=== PATIENT | female | born 1965 | race Caucasian/White ===

== ENCOUNTER 2021-07-28 17:33 | Emergency (ER) | payer SELFPAY ==
[2021-07-28] MEDS ORDERED: Lidocaine 1% 10 ML MDV INJECT ONE (18:03)
[2021-07-28] MEDS ORDERED: Diphtheria,Pertussis(Acell),Tetanus Vaccine 0.5 ML Syringe IM ONE (18:03)
== END 2021-07-28 18:40 | disposition home or self-care (01) ==
LOC: JD.ED 17:33
DX: S01.81XA Laceration without foreign body of other part of head, initial encounter (principal); Z88.0 Allergy status to penicillin; Z88.2 Allergy status to sulfonamides; Z23 Encounter for immunization; W20.8XXA Other cause of strike by thrown, projected or falling object, initial encounter; Y93.64 Activity, baseball
CPT/HCPCS: 12011; 90471; 90715; 99282-25

== ENCOUNTER 2023-09-25 06:51 | Inpatient (IN) | payer SELFPAY ==
[~2023-09-25 06:51] MED LIST: Sodium Chloride 0.9% 10 ML Syringe FLUSH PRN
[2023-09-25] MEDS ORDERED: ceFAZolin 2 GM Vial ONE (06:56)
[2023-09-25] MEDS ORDERED: Ondansetron 4 MG/2 ML SDV ONE (06:56)
[2023-09-25] MEDS ORDERED: Midazolam 1 MG/ML 2 ML SDV ONE (06:56)
[2023-09-25] MEDS ORDERED: Rocuronium 50 MG/5 ML Vial ONE (06:56)
[2023-09-25] MEDS ORDERED: Lidocaine 1% 4 ML ONE (06:56)
[2023-09-25] MEDS ORDERED: fentaNYL 250 MCG/5 ML SDV ONE (06:56)
[2023-09-25] MEDS ORDERED: Ketorolac 30 MG/ML SDV ONE (06:56)
[2023-09-25] MEDS ORDERED: Dexamethasone 4 MG/ML 5 ML MDV ONE (06:56)
[2023-09-25] MEDS ORDERED: Lactated Ringers 1,000 ML ONE (06:56)
[2023-09-25] MEDS ORDERED: Propofol 200 MG/20 ML SDV ONE (06:56)
[2023-09-25] MEDS ORDERED: dexmedeTOMIDine HCl 200 MCG/2 ML SDV ONE (06:56)
[2023-09-25] MEDS: Lactated Ringers 1,000 ML IV SCH (07:10)
[2023-09-25 07:29] LABS: BASOPHILS PERCENT AUTO 0.7 % (0.0-1.0); EOSINOPHILS ABSOLUTE AUTO 0.3 K/mm3 (0.0-0.4); EOSINOPHILS PERCENT AUTO 5.4 % (0.0-6.0); HEMATOCRIT 40.8 % (37.0-47.0); HEMOGLOBIN 13.8 gm/dl (12.0-16.0); IMMATURE GRAN ABSOLUTE AUTO 0.02 K/mm3 (0.00-0.05); IMMATURE GRAN PERCENT AUTO 0.3 % (0.0-0.4); LYMPHOCYTES ABSOLUTE AUTO 1.9 K/mm3 (1.0-4.8); LYMPHOCYTES PERCENT AUTO 33.2 % (24.0-44.0); MEAN CORPUSCULAR HEMOGLOBIN 30.9 pg (28.0-32.0); MEAN CORPUSCULAR HGB CONC 33.8 g/dl (32.0-36.0); MEAN CORPUSCULAR VOLUME 91.3 fl (83.0-99.0); MEAN PLATELET VOLUME 9.8 fl (9.4-12.3); MONOCYTES ABSOLUTE AUTO 0.4 K/mm3 (0.0-0.8); MONOCYTES PERCENT AUTO 7.3 % (0.0-8.0); NEUTROPHILS ABSOLUTE AUTO 3.1 K/mm3 (1.8-7.7); NEUTROPHILS PERCENT AUTO 53.1 % (41.0-71.0); PLATELET COUNT,PLT 325 K/mm3 (150-400); RED BLOOD CELL COUNT 4.47 M/mm3 (4.10-5.30); WHITE BLOOD CELL COUNT,WBC 5.75 K/mm3 (3.9-11.3)
[2023-09-25 07:48] LABS: ANION GAP 14.3 (5-15); BUN/CREATININE RATIO 7.5 (14-18); CALCIUM 8.8 mg/dL (8.5-10.1); CREATININE 0.8 mg/dL (0.55-1.02); EST CRCL DRUG DOSING (CG) 61.36 mL/min; POTASSIUM,K 3.3 mEq/L (3.5-5.1)
[2023-09-25] MEDS ORDERED: HYDROmorphone 0.5 MG/0.5 ML Syringe ONE ×2 (07:57→08:29)
[2023-09-25] MEDS ORDERED: ePHEDrine 50 MG/ML SDV ONE (08:08)
[2023-09-25] MEDS ORDERED: Ketamine 200 MG/20 ML MDV ONE (08:14)
[2023-09-25] MEDS ORDERED: HYDROmorphone 0.5 MG/0.5 ML Syringe IVPUSH PRN (08:24)
[2023-09-25] MEDS ORDERED: Ondansetron 4 MG/2 ML SDV IVPUSH PRN (08:24)
[2023-09-25] MEDS ORDERED: Tranexamic Acid 1,000 MG/10 ML Vial ONE (08:26)
[2023-09-25] MEDS ORDERED: Neostigmine Methylsulfate 10 MG/10 ML MDV ONE (08:56)
[2023-09-25] MEDS: Lidocaine 1% with EPINEPHrine 1:100,000 20 ML MDV ONE (09:00)
[2023-09-25] MEDS: Bupivacaine 0.5% 30 ML SDV ONE (09:22)
[2023-09-25] MEDS: fentaNYL 100 MCG/2 ML SDV IVPUSH PRN (10:08)
[2023-09-25] MEDS: Acetaminophen/oxyCODONE 325-5 MG Tab PO PRN (11:01)
[2023-09-25] MEDS: Sodium Chloride 0.9% 10 ML Syringe FLUSH SCH (11:09)
[2023-09-25] MEDS ORDERED: Sodium Chloride 0.9% 10 ML Syringe FLUSH PRN (13:10)
[2023-09-25] MEDS: Ondansetron 4 MG/2 ML SDV IVPUSH PRN (13:16)
[2023-09-25] MEDS: Ketorolac 30 MG/ML SDV IVPUSH SCH (16:40)
[2023-09-25] MEDS: Docusate Sodium 100 MG Cap PO SCH (21:03)
[2023-09-26] MEDS: Acetaminophen/oxyCODONE 325-5 MG Tab PO PRN (03:58)
[2023-09-26 07:31] LABS: HEMATOCRIT 37.4 % (37.0-47.0); HEMOGLOBIN 12.4 gm/dl (12.0-16.0); MEAN CORPUSCULAR HEMOGLOBIN 30.8 pg (28.0-32.0); MEAN CORPUSCULAR HGB CONC 33.2 g/dl (32.0-36.0); MEAN CORPUSCULAR VOLUME 92.8 fl (83.0-99.0); MEAN PLATELET VOLUME 9.8 fl (9.4-12.3); PLATELET COUNT,PLT 304 K/mm3 (150-400); RED BLOOD CELL COUNT 4.03 M/mm3 (4.10-5.30); WHITE BLOOD CELL COUNT,WBC 10.53 K/mm3 (3.9-11.3)
[2023-09-26] MEDS: Ibuprofen 600 MG Tab PO PRN (08:43)
== END 2023-09-26 11:15 | disposition home or self-care (01) | DRG 743 ==
LOC: JD.OB 06:51
PROVIDERS: ADMIT Obstetrics & Gynecology; ATTEND Obstetrics & Gynecology
PROC: 0UT70ZZ Resection of Bilateral Fallopian Tubes, Open Approach (ICD-10-PCS; 2023-09-25)
PROC: 0UT90ZZ Resection of Uterus, Open Approach (ICD-10-PCS; principal; 2023-09-25 08:00)
DX: D25.9 Leiomyoma of uterus, unspecified (principal); Z88.0 Allergy status to penicillin; Z88.2 Allergy status to sulfonamides; Z88.1 Allergy status to other antibiotic agents; Z79.899 Other long term (current) drug therapy; Z98.890 Other specified postprocedural states; Z87.891 Personal history of nicotine dependence
CPT/HCPCS: 00840; 36415; 80048; 81025; 85025; 85027; 86850; 86900; 86901; A9270-GY; J0665; J0690; J1100; J1170; J1885; J2250; J2405; J2704; J2710; J3010; J3490; J7120